=== PATIENT | female | born 1965 | race Caucasian/White ===

== ENCOUNTER 2017-07-02 13:32 | Outpatient (CLI) | payer BC | END 2017-07-02 19:48 | disposition home or self-care (01) | LOC: SMA 13:32 | PROVIDERS: ATTEND Specialist | DX: Z12.31 Encounter for screening mammogram for malignant neoplasm of breast (principal) | CPT/HCPCS: G0202 ==

== ENCOUNTER 2018-07-18 13:15 | Outpatient (CLI) | payer BC | END 2018-07-18 19:15 | disposition home or self-care (01) | LOC: SMA 13:15 | PROVIDERS: ATTEND Specialist | DX: Z12.31 Encounter for screening mammogram for malignant neoplasm of breast (principal) | CPT/HCPCS: 77067 ==

== ENCOUNTER 2019-07-21 15:29 | Outpatient (CLI) | payer BC, OTHER | END 2019-07-21 21:09 | disposition home or self-care (01) | LOC: SMA 15:29 | PROVIDERS: ATTEND Specialist | DX: Z12.31 Encounter for screening mammogram for malignant neoplasm of breast (principal) | CPT/HCPCS: 77067 ==

== ENCOUNTER 2020-08-12 09:41 | Outpatient (CLI) | payer BC, OTHER | END 2020-08-12 17:04 | disposition home or self-care (01) | LOC: SMA 09:41 | PROVIDERS: ATTEND Specialist | DX: Z12.31 Encounter for screening mammogram for malignant neoplasm of breast (principal) | CPT/HCPCS: 77067 ==

== ENCOUNTER 2021-08-24 11:09 | Outpatient (CLI) | payer BC, OTHER | END 2021-08-24 20:42 | disposition home or self-care (01) | LOC: SMA 11:09 | PROVIDERS: ATTEND Physician Assistant | DX: Z12.31 Encounter for screening mammogram for malignant neoplasm of breast (principal) | CPT/HCPCS: 77067 ==